=== PATIENT | male | born 1945 | race Two or more races ===

== ENCOUNTER 2018-05-31 05:41 | Day surgery (SDC) | payer MEDICARE ==
[~2018-05-31] VITALS: Ht 175.3 cm; Wt 74.4 kg
[2018-05-31] VITALS (9 sets, daily range): BP systolic 102–118; BP diastolic 60–73
[2018-05-31] MEDS ORDERED: ASPIR-LOW81 MG ORAL (06:35)
[2018-05-31] MEDS ORDERED: VITAMIN D400 INTLU ORAL (06:35)
[2018-05-31] MEDS ORDERED: ADRENOID CAPSU1 EACH PO (06:35)
[2018-05-31] MEDS ORDERED: CRESTOR20 MG ORAL (06:35)
--- NOTE | 2018-05-31 06:56 | Short Stay Surgery H&P ---
History of Present Illness History of Present Illness Chief Complaint Abdominal pains and GERDs with screening colonoscopy HPI Sushila Cortez is a 72 year old male who was admitted on for Gerd,Abdominal Pain /screening colonoscopy Patient History Allergies: Coded Allergies: NO KNOWN ALLERGIES (Unverified Allergy, 01/31/13) PAST MEDICAL HISTORY: (1) Hyperlipidemia (2) Arthritis Medication History Scheduled Aspirin* (Aspir-Low*), 81 MG ORAL DAILY, (Reported) Rosuvastatin Calcium* (Crestor*), 20 MG ORAL DAILY, (Reported) Vit B12/Iod/Mg/Zn/Se/Herb#193 (Adrenoid Capsule), 1 EACH PO DAILY, (Reported) Vitamin D (Vitamin D3), 400 UNITS ORAL DAILY, (Reported) Review of Systems Cardiovascular: Reports: no symptoms Respiratory: Reports: no symptoms 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 Summary of Findings See the reports. Attestation Are the patient's medical conditions optimized for surgery? Attestation Response: yes Son Davis MD May 31, 2018 06:56
--- NOTE | 2018-05-31 06:57 | Pre-Procedure Note/Attestation ---
Pre-Procedure Note/Attestation Complete Prior to Procedure Planned Procedure: left Procedure Narrative: Examination of the upper and the lower GI tract via endoscopy Indications for Procedure Pre-Operative Diagnosis: R/O Gastritis/Peptic Ulcer/colon polyps Attestation I attest that I discussed the nature of the procedure; its benefits; risks and complications; and alternatives (and the risks and benefits of such alternatives ), prior to the procedure, with the patient (or the patient's legal senior human resources representative). I attest that, if there was a reasonable possibility of needing a blood transfusion, the patient (or the patient's legal senior human resources representative) was given the [place] [employer] [facility] [employer] [facility] standardized written summary, pursuant to the [place] Blood Safety Act ([place] Health and Safety Code # 1645, as amended). I attest that I re-evaluated the patient just prior to the surgery and that there has been no change in the patient's H&P, except as documented below: Son Davis MD May 31, 2018 06:57
[2018-05-31] MEDS ORDERED: Lidocaine 1% MPF 10mg/ml 5ml ONE (08:00)
[2018-05-31] MEDS ORDERED: LR 1000ml ONE (08:00)
[2018-05-31] MEDS ORDERED: Propofol 200mg/20ml IV ONE (08:00)
--- NOTE | 2018-05-31 08:09 | Anethesia Preoperative Eval ---
Anesthesia Pre-op PMH/ROS General Date of Evaluation: May 31, 2018 Time of Evaluation: 07:45 Anesthesiologist: Mildred Benjamin CRNA ASA Score: ASA 2 Mallampati Score Class I : Soft palate, uvula, fauces, pillars visible Class II: Soft palate, uvula, fauces visible Class III: Soft palate, base of uvula visible Class IV: Only hard plate visible Mallampati Classification: Class II Surgeon: Susan Diagnosis: Abdominal pain Surgical Procedure: EGD, colooscopy Family History: no anesthesia problems Allergies: Coded Allergies: NO KNOWN ALLERGIES (Unverified Allergy, 01/31/13) Medications: see eMAR Patient NPO?: Yes NPO Date: May 31, 2018 NPO Time: 00:00 Past Medical History Cardiovascular: Reports: other - hyperlipidemia; Denies: HTN, CAD, [place], valve dz, arrhythmia Pulmonary: Denies: asthma, COPD, MANDO, other Gastrointestinal/Genitourinary: Reports: GERD; Denies: CRI, ESRD, other Neurologic/Psychiatric: Denies: dementia, CVA, depression/anxiety, TIA, other Endocrine: Denies: DM, hypothyroidism, steroids, other HEENT: Denies: cataract (L), cataract (R), glaucoma, [place] (L), [place] (R), other Hematology/Immune: Denies: anemia, DVT, bleeding disorder, other Musculoskeletal/Integumentary: Reports: OA; Denies: RA, DJD, DDD, edema, other PMH Narrative: as noted above PSxH Narrative: Inguinal hernia repair Anesthesia Pre-op Phys. Exam Physician Exam Last Vital Signs Date Time Temp Pulse Resp B/P (MAP) Pulse Ox O2 Delivery O2 Flow Rate FiO2 05/31/18 06:36 Room Air 05/31/18 06:31 97.0 69 18 113/66 97 Constitutional: NAD Cardiovascular: RRR, other - alert & oriented Respiratory: CTA Gastrointestinal: S/NT/ND Airway Exam Mallampati Score: Class II MO: full Neck: FROM TMD: > 3 FB ROM: full Teeth: intact Dentures: no upper, no lower Anesthesia Pre-op A/P Risk Assessment & Plan Assessment: ASA 2, ok to proceed Plan: MAC Status Change Before Surgery: No Pre-Antibiotics Given Within 1 Hr of Incision: Mildred Miller CRNA May 31, 2018 08:09
--- NOTE | 2018-05-31 08:13 | Endoscopy Procedure Note ---
Endoscopy Procedure Note General Indication for Procedure: Abdominal pains/GERDs and screening colon Procedures Performed: EGD - Small Hiatal Hernia otherwise total normal upper GI. endoscopy. Biopsy obtained from gastric body per random., colonoscopy - Minimal Internal Hemorrhoid otherwise completely normal total colonoscopy as examined upto the base of the cecum as examined. Specimen: yes Pt Tolerated Procedure Well: Yes Estimated Blood Loss: none Anesthesia Anesthesiologist: Ms. Sourav AARON Anesthesia: moderate sedation Medications Medication Given: see anesthesia record Inserted Devices Implant(s) used?: No Quality Quality of Bowel Preparation: Excellent Did scope reach the cecum?: Yes Was there any complications?: No GI Core Measures 50 yrs or older w/o bx or poly: Yes 10yrs. F/U not recommended: Yes 10 yrs. F/U needed: Yes 18 years or older w/prev. colo: No <3yrs. since last colonoscopy: No Med reason:<3 yrs.: System Reason:<3 yrs.: Last colonoscopy >= to 3yrs: Yes Son Davis MD May 31, 2018 08:13
--- NOTE | 2018-05-31 08:14 | Discharge Instructions ---
Discharge Instructions Discharge Instructions Follow up with: No need to follow up in the office For Congestive Heart Failure Reminder Report to your physician any weight gain of 5 pounds or more in one week. Son Davis MD May 31, 2018 08:14
--- NOTE | 2018-05-31 08:20 | Immediate Post-Op Evaluation ---
Immediate Post-Op Evalulation Immediate Post-Op Evalulation Procedure: EGD and colonoscopy Date of Evaluation: May 31, 2018 Time of Evaluation: 08:15 IV Fluids: LR 500ml Blood Pressure Systolic: 106 Blood Pressure Diastolic: 60 Pulse Rate: 60 Respiratory Rate: 22 O2 Sat by Pulse Oximetry: 99 Temperature (Fahrenheit): 97.8 Pain Score (1-10): 0 Nausea: No Vomiting: No Complications none Patient Status: awake, reacts, patent Hydration Status: adequate Given Within 1 Hr of Incision: Mildred Miller CRNA May 31, 2018 08:20
--- NOTE | 2018-05-31 12:24 | 48 Hour Post Anesthesia Eval ---
Post Anesthesia Evaluation Procedure: EGD and colonoscopy Date of Evaluation: May 31, 2018 Time of Evaluation: 11:22 Blood Pressure Systolic: 114 0: 73 Pulse Rate: 64 Respiratory Rate: 18 Temperature (Fahrenheit): 98.0 O2 Sat by Pulse Oximetry: 99 Airway: patent Nausea: No Vomiting: No Pain Intensity: 0 Hydration Status: adequate Cardiopulmonary Status: stable Mental Status/LOC: patient returned to baseline Follow-up Care/Observations: per GI Post-Anesthesia Complications: none Follow-up care needed: N/A Mildred Benjamin CRNA May 31, 2018 12:24
--- NOTE | 2018-05-31 16:45 | Operative Note - Dictated ---
DATE OF OPERATION: 05/31/2018 SURGEON: Son Davis M.D. PROCEDURE: Esophagogastroduodenoscopy with biopsy. PREOPERATIVE DIAGNOSES: Abdominal pain, history of chronic gastroesophageal reflux, rule out peptic ulcer disease, gastritis. POSTOPERATIVE DIAGNOSIS: Small hiatal hernia, otherwise complete normal total upper GI endoscopy. Biopsy was taken per random from gastric body. MEDICATION USED: Per Ms. Sourav CRNA, football coach. INSTRUMENT: GIF Olympus upper GI video endoscope. DESCRIPTION OF PROCEDURE: The patient after arriving endoscopy unit, was told about risks and benefits of the procedure, which he accepted and signed informed consent. He was then put on the left lateral decubitus position. After adequate IV sedation, the scope was gently passed through the cricopharyngeal area, was lodged into the upper esophagus and gradually advanced towards gastroesophageal junction. The entire length of the esophagus looked normal without any evidence of inflammatory process, ulceration, and stricture, etc. GE junction also looked normal. There was no Rosen. However, there was evidence of a small hiatal hernia. At this time, the scope was advanced into the rest of the gastric cavity and insufflation of the air produced adequate visualization. Gradually, the areas of the upper and mid and lower part of the stomach was examined, which basically looked normal without any inflammatory process, ulcers, tumors, polyps, etc. At this point, one random biopsy from gastric body was obtained and a retroflexion maneuver was applied. The area of the gastroesophageal junction was examined in a closer fashion, which revealed normal findings. Finally, the scope was passed through the antrum and introduced into the pylorus. First and second portion of duodenum were found to be completely normal. At this time, the scope was pulled out and procedure was terminated. The patient tolerated the procedure well. Son Davis M.D. DR: NANCY JOB#: [id number] CC:
--- NOTE | 2018-05-31 16:45 | Operative Note - Dictated ---
DATE OF OPERATION: 05/31/2018 SURGEON: Son Davis M.D. PROCEDURE: Total colonoscopy. PREOPERATIVE DIAGNOSIS: Screening colonoscopy. POSTOPERATIVE DIAGNOSIS: Minimal internal hemorrhoid, otherwise complete normal total colonoscopy up to the base of the cecum as examined. MEDICATION USED: Per Ms. Sourav CRNA cellar pumper. INSTRUMENT: GIF Olympus video colonoscope. DESCRIPTION OF PROCEDURE: The patient after arriving in the endoscopy unit, was told about risks and benefits of the procedure, which he accepted and signed informed consent. He was then put on the left lateral decubitus position. After adequate IV sedation, the scope was gently passed through the anal area and careful examination of this section along with performance of retroflexion revealed evidence of minimal internal hemorrhoids, which was not significant and nonfriable. The rest of the rectum looked completely normal. At this time, the scope was gradually passed through the rectosigmoid area introduced into descending colon, splenic flexure, transverse colon, and finally got to the hepatic flexure and guided all the way to the base of the cecum. All these areas remained to be completely normal without any evidence of pathology such as polyps, tumors, strictures, inflammatory process, ulceration etc. The base of the cecum also looked completely normal. The colon cleanup was excellent and at this point within 6 minutes, the scope was gradually pulled out and re-evaluation of the colon did not reveal any abnormalities. The patient tolerated the procedure well and left the endoscopy room in a good condition. Son Davis M.D. DR: MORE JOB#: [id number] CC:
== END 2018-05-31 09:30 | disposition home or self-care (01) ==
LOC: GAS 05:41
DX: Z12.11 Encounter for screening for malignant neoplasm of colon (principal); K64.8 Other hemorrhoids; K21.9 Gastro-esophageal reflux disease without esophagitis; K44.9 Diaphragmatic hernia without obstruction or gangrene; R10.9 Unspecified abdominal pain; E78.5 Hyperlipidemia, unspecified; M19.90 Unspecified osteoarthritis, unspecified site; Z79.82 Long term (current) use of aspirin; Z79.899 Other long term (current) drug therapy; K29.50 Unspecified chronic gastritis without bleeding
CPT/HCPCS: 43239; G0121; 94003; 94150